=== PATIENT | male | born 1980 | race Two or more races ===

== ENCOUNTER 2018-03-27 10:45 | Inpatient (IN) | payer OTHER ==
[~2018-03-27] VITALS: Ht 177.8 cm; Wt 85.3 kg
[2018-03-27] MEDS ORDERED: OMEPRAZOLE20 MG PO (14:35)
[2018-03-27] MEDS ORDERED: ZANTAC150 M3 PO (14:36)
== END 2018-03-31 17:57 | disposition home or self-care (01) | DRG 331 ==
LOC: O/R 03-29 10:30 → SURH 03-29 10:30 → RECOVERY 03-29 10:45 → SURH 03-29 16:11 → RECOVERY 03-29 18:00 → SURH 03-31 17:57
PROVIDERS: Colon & Rectal Surgery
PROC: 0DJD8ZZ Inspection of Lower Intestinal Tract, Via Natural or Artificial Opening Endoscopic (ICD-10-PCS; 2018-03-29)
PROC: 0DTN4ZZ Resection of Sigmoid Colon, Percutaneous Endoscopic Approach (ICD-10-PCS; principal; 2018-03-29 18:00)
DX: K57.32 Diverticulitis of large intestine without perforation or abscess without bleeding (principal)